=== PATIENT | female | born 1955 | race American Indian/Alaskan Native ===

== ENCOUNTER 2016-10-05 08:53 | Day surgery (SDC) | payer MEDICARE ==
--- NOTE | 2016-10-05 10:57 | History and Physical Report ---
History of Present Illness Date of examination: 10/05/16 Chief complaint: rt. neck mass Medications and Allergies Allergies Allergy/AdvReac Type Severity Reaction Status Date / Time No Known Allergies Allergy Verified 12/26/13 20:42 Home Medications Medication Instructions Recorded Confirmed Last Taken Type Fluticasone [Flonase] 1 spray INTRANASAL DAILY 12/27/13 10/05/16 1 Week Ago History Metoprolol [Lopressor TAB] 25 mg PO BID 12/27/13 10/05/16 10/05/16 History PARoxetine [Paxil] 20 mg PO DAILY 12/27/13 10/05/16 10/05/16 History Ranitidine (Nf) [Zantac (Nf)] 150 mg PO BID 12/27/13 10/05/16 10/02/16 History Simvastatin [Zocor TAB] 80 mg PO HS 12/27/13 10/05/16 10/02/16 History Losartan/Hydrochlorothiazide 1 each PO DAILY 10/05/16 10/05/16 10/05/16 History [Losartan-Hctz 100-25 mg Tab] amLODIPine [Norvasc] 5 mg PO DAILY 10/05/16 10/05/16 10/05/16 History metFORMIN [Glucophage] 750 mg PO QDAY 10/05/16 10/05/16 10/05/16 History Exam Vital Signs Temp Pulse Resp BP Pulse Ox 98.0 F 59 L 18 147/63 98 10/05/16 09:11 10/05/16 09:11 10/05/16 09:11 10/05/16 09:11 10/05/16 09:11
--- NOTE | 2016-10-05 11:00 | Procedure Note ---
Date of procedure: 10/05/16 Pre-op diagnosis: rt. thyroid mass Post-op diagnosis: same Procedure: asp/bx Findings: large rt. thyroid mass Anesthesia: local Surgeon: JUAN RAMON VILLAFANA Estimated blood loss: none Pathology: list (rt thyroid cells) Specimen disposition: to lab Condition: stable Disposition: observation
[2016-10-05 11:11] VITALS: BP 153/70
--- NOTE | 2016-10-05 12:37 | Ultrasound Report ---
Ultrasound-guided thyroid biopsy: History: Palpable mass for at least several months. Unclear concerning recent enlargement. Imaging of the thyroid demonstrates that the right lobe measures 2.8 x 3.4 x 5.4 cm. It is generally inhomogeneous but predominantly occupied by a mass in the lower 80% measuring 4.5 cm. The mass is relatively iso-echogenic but contains a circumscribed, lobulated, inhomogeneously hypoechoic nodule in its superior portion which is moderately vascular. The left lobe measures 14 x 19 x 38 mm. It is inhomogeneous with a 16mm isoechoic nodule. The dominant right nodule was chosen for sampling. The skin was cleansed and 1% lidocaine used for local anesthesia. Under ultrasound guidance samples were obtained through both the larger homogeneous mass as well as the focal nodule. There were no complications. Attending pathologist indicated adequate sampling. The patient was sent to observation prior to discharge.
== END 2016-10-05 11:15 | disposition home or self-care (01) ==
LOC: OPU 08:53 → US 08:53 → EDSTATUS 09:00 → OPU 11:15
PROVIDERS: ATTEND Otolaryngology
DX: E07.89 Other specified disorders of thyroid (principal); I10 Essential (primary) hypertension; J45.909 Unspecified asthma, uncomplicated; E78.00 Pure hypercholesterolemia, unspecified; K21.9 Gastro-esophageal reflux disease without esophagitis; Z79.899 Other long term (current) drug therapy
CPT/HCPCS: 60100; 76942; 88112; 88172; 88173; 88305

== ENCOUNTER 2017-12-19 11:56 | Outpatient (CLI) | payer MEDICARE ==
--- NOTE | 2017-12-19 14:54 | XRay Report ---
XRAY LUMBAR SPINE THREE VIEWS: 12/19/17 11:56:00 CLINICAL: Back pain and lumbar stenosis. No comparison. FINDINGS: Status post posterior lumbar fusion at L4-5. Mild levoscoliosis centered at L4-5. Left facet joint sclerosis at L5-S1. Normal appearance of the fusion hardware. Normal vertebral body alignment. Disc space narrowing at L4-5 and L5-S1. The rest of the disc spaces are intact. A large anterior osteophyte at L1-2. The pedicles are intact. No fracture. Calcification of the abdominal aorta. IMPRESSION: Lower lumbar levoscoliosis and left facet joint disease. Status post posterior lumbar fusion at L4-5. L1-2 degenerative disc disease and mild degenerative disc disease at L4-5 and L5-S1.
== END 2017-12-19 11:57 | disposition home or self-care (01) ==
LOC: SPVIMAG 11:56
PROVIDERS: ATTEND Neurological Surgery
DX: M41.86 Other forms of scoliosis, lumbar region (principal); M51.37 Other intervertebral disc degeneration, lumbosacral region; M43.26 Fusion of spine, lumbar region; I10 Essential (primary) hypertension; E78.00 Pure hypercholesterolemia, unspecified; K21.9 Gastro-esophageal reflux disease without esophagitis; M19.90 Unspecified osteoarthritis, unspecified site; Z90.710 Acquired absence of both cervix and uterus; Z87.891 Personal history of nicotine dependence
CPT/HCPCS: 72100